=== PATIENT | male | born 1985 | race Caucasian/White ===

== ENCOUNTER 2018-05-11 22:11 | Emergency (ER) | payer SELFPAY ==
[~2018-05-11] VITALS: Ht 193 cm; Wt 86.0 kg
[2018-05-12] MEDS ORDERED: LORAZEPAM 0.5MG TABLET PO ONE (02:45)
[2018-05-12 04:07] VITALS: BP 106/61
== END 2018-05-12 04:06 | disposition home or self-care (01) ==
LOC: ER 22:11
DX: F41.9 Anxiety disorder, unspecified (principal); R07.89 Other chest pain; R06.02 Shortness of breath; F17.200 Nicotine dependence, unspecified, uncomplicated; F12.10 Cannabis abuse, uncomplicated; Z90.49 Acquired absence of other specified parts of digestive tract; Z88.0 Allergy status to penicillin
CPT/HCPCS: 99284; Z7610